=== PATIENT | male | born 1970 | race African-American/Black ===

== ENCOUNTER 2019-04-19 21:22 | Observation (INO) | payer OTHER ==
--- NOTE | 2019-04-19 22:26 | ED ---
Chest Pain HPI - General Chief Complaint: Chest Pain Stated Complaint: Chest pain Time Seen by Provider: 04/19/19 21:42 Source: patient, family Mode of arrival: wheelchair Limitations: no limitations - History of Present Illness Initial Comments: This patient is a 48-year-old man who presents to be evaluated for some left- sided chest pain that had come on this evening after he had a little bit of an argument with his significant other. He indicates the left chest. The pain was aching and mild. It has resolved. The pain was not accompanied by anginal type symptoms. The patient's recent history is notable for new diagnosis of nonischemic cardiomyopathy, almost a month ago. The patient works as a truck loader and had developed shortness of breath. He was seen at a hospital in [place] and admitted for congestive heart failure. He does have some discharge papers from the other facility that indicate he had a heart catheterization without significant coronary artery disease. He was found to have ejection fraction of 10-15% on that study. He also had an echocardiogram that showed ejection fraction approximately 15%, and some LVH. MD Complaint: chest pain -: hour(s) Onset: other (After an argument) Pain Location: left chest Pain Radiation: none Severity: mild Quality: aching Consistency: now resolved Improves With: nothing Worsens With: nothing Treatments Prior to Arrival: none - Related Data Previous Rx's Medication Instructions Recorded Aspirin 81 mg PO DAILY #30 chew 04/21/19 Carvedilol [Coreg] 6.25 mg PO DAILY #60 tab 04/21/19 Furosemide [Lasix] 20 mg PO DAILY #30 tab 04/21/19 Sacubitril/Valsartan [Entresto 24 1 tab PO BID #60 tab 04/21/19 mg-26 mg Tablet] Spironolactone 12.5 mg PO HS #20 tab 04/21/19 Allergies Allergy/AdvReac Type Severity Reaction Status Date / Time No Known Allergies Allergy Verified 04/19/19 22:42 Review of Systems ROS Statement: Those systems with pertinent positive or pertinent negative responses have been documented in the HPI. ROS Other: All systems not noted in ROS Statement are negative. Constitutional: Denies: fever, chills Respiratory: Denies: cough, dyspnea, wheezes Cardiovascular: Reports: as per HPI, chest pain. Denies: palpitations, orthopnea, edema, syncope Gastrointestinal: Denies: abdominal pain, nausea, vomiting, melena, hematochezia Genitourinary: Denies: dysuria, hematuria Musculoskeletal: Denies: back pain Skin: Denies: rash Neurological: Denies: headache, weakness, numbness EKG Findings - EKG Comments: EKG Findings:: There is no old ECG for comparison. - EKG Results: EKG: interpreted by LJD, sinus rhythm (Rate 93 bpm), normal axis - Blocks, [place], Hypertrophy, ST Abn: AV and intraventricular conduction: left bundle branch block (fixed/intermittent, complete/incomplete) Past Medical History Past Medical History: Heart Failure, Rheumatoid Arthritis (RA) Past Surgical History: No Surgical Hx Reported Past Psychological History: No Psychological Hx Reported Smoking Status: Current every day smoker Past Alcohol Use History: None Reported Past Drug Use History: None Reported - Past Family History Mother Family Medical History: CVA/TIA Father History Unknown: Yes General Exam Limitations: no limitations General appearance: alert, in no apparent distress Head exam: Present: atraumatic, normocephalic Eye exam: Present: normal appearance. Absent: scleral icterus, conjunctival injection ENT exam: Present: normal oropharynx Respiratory exam: Present: normal lung sounds bilaterally. Absent: respiratory distress, wheezes, rales, rhonchi, stridor Cardiovascular Exam: Present: regular rate, normal rhythm, gallop. Absent: systolic murmur, diastolic murmur, rubs GI/Abdominal exam: Present: soft. Absent: distended, tenderness, guarding, rebound, rigid, mass Extremities exam: Present: normal inspection, normal capillary refill. Absent: pedal edema, calf tenderness Back exam: Present: normal inspection. Absent: CVA tenderness (R), CVA tenderness (L) Neurological exam: Present: alert Skin exam: Present: warm, dry, intact, normal color. Absent: rash Course Vital Signs 04/19/19 04/19/19 04/19/19 21:30 21:49 22:00 Temperature 97.6 F Pulse Rate 94 96 94 Pulse Rate [ Pulse Oximetery ] Respiratory 18 18 16 Rate Blood Pressure 134/84 119/80 Blood Pressure [Right Arm] O2 Sat by Pulse 100 98 96 Oximetry 04/19/19 04/20/19 04/20/19 23:24 00:00 01:38 Temperature Pulse Rate 100 85 79 Pulse Rate [ Pulse Oximetery ] Respiratory 18 18 18 Rate Blood Pressure 102/80 102/78 101/70 Blood Pressure [Right Arm] O2 Sat by Pulse 98 99 97 Oximetry 04/20/19 04/20/19 04/20/19 02:00 04:00 06:00 Temperature Pulse Rate 86 82 72 Pulse Rate [ Pulse Oximetery ] Respiratory 18 18 18 Rate Blood Pressure 101/70 100/68 102/78 Blood Pressure [Right Arm] O2 Sat by Pulse 99 95 98 Oximetry 04/20/19 04/20/19 04/20/19 08:00 12:00 16:00 Temperature 97.1 F L 97.7 F 98.0 F Pulse Rate Pulse Rate [ 82 80 80 Pulse Oximetery ] Respiratory 16 16 16 Rate Blood Pressure Blood Pressure 118/82 97/66 90/66 [Right Arm] O2 Sat by Pulse 96 96 99 Oximetry 04/20/19 20:36 Temperature 98.0 F Pulse Rate Pulse Rate [ 74 Pulse Oximetery ] Respiratory 18 Rate Blood Pressure Blood Pressure 109/73 [Right Arm] O2 Sat by Pulse 100 Oximetry - Reevaluation(s) Reevaluation #1: 04/19/19 23:[address] Romeo and his treatment recommendations are incorporated. Disposition Clinical Impression: Elevated troponin I level, Chest pain Disposition: ADMITTED IP TO THIS [facility] Condition: Fair
[2019-04-19 22:33] LABS: Basophils % (A) 1 %; Eosinophils # (A) 0.3 k/uL (0-0.7); Eosinophils % (A) 4 %; HCT 44.3 % (39.0-53.0); HGB 15.2 gm/dL (13.0-17.5); Lymphocytes # (A) 2.4 k/uL (1.0-4.8); Lymphocytes % (A) 31 %; MCH 30.4 pg (25.0-35.0); MCHC 34.2 g/dL (31.0-37.0); MCV 88.7 fL (80.0-100.0); Mean Platelet Volume 8.1; Monocytes # (A) 0.3 k/uL (0-1.0); Monocytes % (A) 4 %; Neutrophils # (A) 4.6 k/uL (1.3-7.7); Neutrophils % (A) 59 %; Platelet Count 166 k/uL (150-450); RDW 14.3 % (11.5-15.5); WBC 7.8 k/uL (3.8-10.6)
[2019-04-19 22:41] LABS: Albumin 4.1 g/dL (3.5-5.0); Calcium 8.6 mg/dL (8.4-10.2); Total Bilirubin 0.6 mg/dL (0.2-1.3); Total Protein 7.5 g/dL (6.3-8.2)
[2019-04-19 22:46] LABS: D-Dimer 0.47 mg/L FEU (<0.60); INR 0.9 (<1.2); Partial Thromboplastin Time 23.3 sec (22.0-30.0); Prothrombin Time 10.1 sec (9.0-12.0)
--- NOTE | 2019-04-19 22:49 | XR ---
EXAMINATION TYPE: XR chest 2V DATE OF EXAM: 04/19/2019 COMPARISON: NONE HISTORY: Chest pain TECHNIQUE: Single view FINDINGS: Heart is moderately enlarged. There is no heart failure. Lungs are clear. Diaphragm is norm al. There are chest leads. IMPRESSION: Moderate cardiomegaly. No active cardiopulmonary disease. No heart failure seen.
[2019-04-19] MEDS ORDERED: NITROGLYCERIN SL TABS 0.4 MG TAB SUBLINGUAL PRN (23:38)
[2019-04-20 04:41] LABS: Cholesterol 145 mg/dL (<200); HDL Cholesterol 26 mg/dL (40-60); LDL Cholesterol,Calculated 88 mg/dL (0-99); Triglycerides 153 mg/dL (<150)
[2019-04-20] MEDS ORDERED: FUROSEMIDE 20 MG TAB PO SCH ×2 (09:00→16:00)
[2019-04-20] MEDS ORDERED: CARVEDILOL 6.25 MG TAB PO SCH (09:00)
[2019-04-20] MEDS ORDERED: ASPIRIN 325 MG TAB PO SCH (09:00)
[2019-04-20] MEDS: SACUBITRIL/VALSARTAN 24 MG-26 MG TABLET PO SCH ×2 (09:07→21:40)
--- NOTE | 2019-04-20 10:47 | P.HPIM ---
History of Present Illness This is a pleasant 48 years old male with past medical history of rheumatoid arthritis, nonischemic cardiomyopathy with ejection fraction of 10-15% and GERD. He presents with 1 day of chest pain. His chest pain was across the front chest, nonradiating, nonspecific, was about 6/10 on come in to the hospital and currently is minimal, associated with numbness in the legs with times in the back and dyspnea which are also resolved now. 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 Patient is a switching [employer] and insurance as well, for this reason he does not have medical insurance currently and does not follow up with PCP. Patient ran out of his medication 1-2 days before is getting chest pain except for entresto. He is hemodynamically stable. Labs reviewed including CBC, INR, BMP and liver en zymes are not elevated. Troponin are elevated 2 with 0.088. In the emergency room patient was started on aspirin and consult airplane pilot commercial Review of Systems CONSTITUTIONAL: No fever, no malaise, no fatigue. HEENT: No recent visual problems or hearing problems. Denied any sore throat. CARDIOVASCULAR: No orthopnea, PND, no palpitations, no syncope. PULMONARY: No shortness of breath, no cough, no hemoptysis. GASTROINTESTINAL: No diarrhea, no nausea, no vomiting, no abdominal pain. Normoactive bowel sounds. NEUROLOGICAL: No headaches, no weakness, no numbness. HEMATOLOGICAL: Denies any bleeding or petechiae. GENITOURINARY: Denies any burning micturition, frequency, or urgency. MUSCULOSKELETAL/RHEUMATOLOGICAL: Denies any joint pain, swelling, or any muscle pain. ENDOCRINE: Denies any polyuria or polydipsia. Past Medical History Past Medical History: Heart Failure, GERD/Reflux, Rheumatoid Arthritis (RA) Additional Past Medical History / Comment(s): Nonischemic cardiomyopathy/EF 10- 15%, bronchitis, RA mostly in fingers with weather changes. History of Any Multi-Drug Resistant Organisms: None Reported Past Surgical History: Heart Catheterization Additional Past Surgical History / Comment(s): 03/2019 cardiac cath in [place] Past Anesthesia/Blood Transfusion Reactions: No Reported Reaction Additional Past Anesthesia/Blood Transfusion Reaction / Comment(s): Pt has never had general anesthesia Smoking Status: Former smoker - Past Family History Mother Family Medical History: CVA/TIA Father History Unknown: Yes Medications and Allergies Home Medications Medication Instructions Recorded Confirmed Type Carvedilol [Coreg] 6.25 mg PO DAILY 04/19/19 04/19/19 History Furosemide [Lasix] 20 mg PO DAILY 04/19/19 04/19/19 History Sacubitril/Valsartan [Entresto 24 1 tab PO BID 04/19/19 04/19/19 History mg-26 mg Tablet] Spironolactone 12.5 mg PO HS 04/19/19 04/19/19 History Allergies Allergy/AdvReac Type Severity Reaction Status Date / Time No Known Allergies Allergy Verified 04/19/19 22:42 Physical Exam Vitals: Vital Signs Temp Pulse Resp BP Pulse Ox 04/20/19 06:00 72 18 102/78 98 04/20/19 04:00 82 18 100/68 95 04/20/19 02:00 86 18 101/70 99 04/20/19 01:38 79 18 101/70 97 04/20/19 00:00 85 18 102/78 99 04/19/19 23:24 100 18 102/80 98 04/19/19 22:00 94 16 119/80 96 04/19/19 21:49 96 18 98 04/19/19 21:30 97.6 F 94 18 134/84 100 Intake and Output 04/19/19 04/20/19 04/20/19 22:59 06:59 14:59 Other: Weight 117.934 kg 117.934 kg GENERAL: The patient is alert and oriented x3, not in any acute distress. Well developed, well nourished. HEENT: Pupils are round and equally reacting to light. EOMI. No scleral icterus. No conjunctival pallor. Normocephalic, atraumatic. No pharyngeal erythema. No thyromegaly. CARDIOVASCULAR: S1 and S2 present. No murmurs, rubs, or gallops. PULMONARY: Chest is clear to auscultation, no wheezing or crackles. ABDOMEN: Soft, nontender, nondistended, normoactive bowel sounds. No palpable organomegaly. MUSCULOSKELETAL: No joint swelling or deformity. EXTREMITIES: No cyanosis, clubbing, or pedal edema. NEUROLOGICAL: Gross neurological examination did not reveal any focal deficits. SKIN: No rashes. No petechiae Results CBC & Chem 7: 04/19/19 21:55 01/13/20 21:55 Labs: Abnormal Lab Results - Last 24 Hours (Table) 04/19/19 04/19/19 04/20/19 Range/Units 21:55 21:55 04:08 Chloride 111 H (98-107) mmol/L Carbon Dioxide 20 L (22-30) mmol/L Glucose 163 H (74-99) mg/dL Troponin I 0.088 H* (0.000-0.034) ng/mL Triglycerides 153 H (<150) mg/dL HDL Cholesterol 26 L (40-60) mg/dL 04/20/19 Range/Units 04:09 Chloride (98-107) mmol/L Carbon Dioxide (22-30) mmol/L Glucose (74-99) mg/dL Troponin I 0.081 H* (0.000-0.034) ng/mL Triglycerides (<150) mg/dL HDL Cholesterol (40-60) mg/dL Thrombosis Risk Factor Assmnt - Choose All That Apply Any of the Below Risk Factors Present?: Yes Each Factor Represents 1 point: Age 41-60 years, Heart failure (<1month), Obesity (BMI >25) Other Risk Factors: No Other congenital or acquired thrombophilia - If yes, enter type in comment: No Thrombosis Risk Factor Assessment Total Risk Factor Score: 3 Thrombosis Risk Factor Assessment Level: Moderate Risk Assessment and Plan Assessment: Elevated troponin, suspicious for non-STEMI nonischemic cardiomyopathy with ejection fraction of 10-15% nicotine dependence, quit on 03/2019 Noncompliance to medications due to insurance reasons Gastroesophageal reflux disease History of rheumatoid arthritis Plan: This is a pleasant 48 years old male who presents with possible non-STEMI. Continue with aspirin. Cardiology consult. hog worker consult. Patient is consult regarding his smoking and he does not want nicotine he wants to quit by himself Labs and medication were reviewed.. Continue same treatment. Continue with symptomatic treatment. Resume home medication. Monitor lytes and vitals. DVT and GI prophylaxis. Further recommendations of the clinical course of the patient DVT prophylaxis: Subcutaneous heparin GI Prophylaxis: Pepcid Prognosis is guarded
--- NOTE | 2019-04-20 13:37 | P.CRDCN ---
History of Present Illness Consult date: 04/20/19 Requesting physician: Omer Rodriguez Consult reason: congestive heart failure Chief complaint: chest discomfort and shortness of breath History of present illness: this is a 48-year-old gentleman who was seen at a hospital in [place] about a month ago, admitted there with congestive cardiac failure as well as a nonischemic cardiomyopathy, felt to be viral. Prior to that patient had no significant history. He had an echocardiogram with Doppler study performed there which revealed an ejection fraction of 10-15%, mild to moderate mitral regurgitation. 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 Reason he is now hearing [employer] because his girlfriend lives here. He is actually from [facility] himself. He presents to the hospital on this occasion after having an argument at home with his significant other, developed some midsternal chest pressure and became quite short of breath. The patient also states that he has not been taking his medications for the past one week as he ran out of them. Patient's discharge medications on March 09 from the hospital when he was inhe was sat in [place], Coreg 6.25 mg twice a day, Lasix 20 mg daily, Entresto 24/26mg one tablet by mouth twice a day and Aldactone 25 one half tablet daily.chest x-ray on arrival here showed moderate cardiomegaly with no active cardiopulmonary disease.his EKG showed a normal sinus rhythm with a left bundle-branch block pattern and nonspecific ST-T wave changes.subsequent EKG shows normal sinus rhythm with a left bundle-branch block pattern. Blood pressure 118/80 with a heart rate in the 80s, 96% on room air. White blood cell count 7.8, hemoglobin 15.2, platelet count 166. D-dimer 0.4. Sodium 141, potassium 4.0, BUN 18, creatinine 1.2.magnesium 2.0. Troponin 0.088, 0.081, 0.083.BNP 3210. Cholesterol 145, LDL 88, HDL 26, triglycerides 153. Past Medical History Past Medical History: Heart Failure, GERD/Reflux, Rheumatoid Arthritis (RA) Additional Past Medical History / Comment(s): Nonischemic cardiomyopathy/EF 10- 15%, bronchitis, RA mostly in fingers with weather changes. History of Any Multi-Drug Resistant Organisms: None Reported Past Surgical History: Heart Catheterization Additional Past Surgical History / Comment(s): 03/2019 cardiac cath in [place] Past Anesthesia/Blood Transfusion Reactions: No Reported Reaction Additional Past Anesthesia/Blood Transfusion Reaction / Comment(s): Pt has never had general anesthesia Smoking Status: Former smoker - Past Family History Mother Family Medical History: CVA/TIA Father History Unknown: Yes Medications and Allergies Home Medications Medication Instructions Recorded Confirmed Type Carvedilol [Coreg] 6.25 mg PO DAILY 04/19/19 04/19/19 History Furosemide [Lasix] 20 mg PO DAILY 04/19/19 04/19/19 History Sacubitril/Valsartan [Entresto 24 1 tab PO BID 04/19/19 04/19/19 History mg-26 mg Tablet] Spironolactone 12.5 mg PO HS 04/19/19 04/19/19 History Allergies Allergy/AdvReac Type Severity Reaction Status Date / Time No Known Allergies Allergy Verified 04/19/19 22:42 Physical Exam Vitals: Vital Signs Temp Pulse Pulse Resp BP BP Pulse Ox 04/20/19 08:00 97.1 F L 82 16 118/82 96 04/20/19 06:00 72 18 102/78 98 04/20/19 04:00 82 18 100/68 95 04/20/19 02:00 86 18 101/70 99 04/20/19 01:38 79 18 101/70 97 04/20/19 00:00 85 18 102/78 99 04/19/19 23:24 100 18 102/80 98 04/19/19 22:00 94 16 119/80 96 04/19/19 21:49 96 18 98 04/19/19 21:30 97.6 F 94 18 134/84 100 Intake and Output 04/19/19 04/20/19 04/20/19 22:59 06:59 14:59 Other: Voiding Method Urinal Weight 117.934 kg 117.934 kg PHYSICAL EXAMINATION: GENERAL:48-year-old gentleman in no acute distress at the time of my exam HEENT: Head is atraumatic, normocephalic. Pupils equal, round. Sclera anicteric. Conjunctiva are clear. Mucous membranes of the mouth are moist. Neck is supple. There is elevated jugular venous pressure. No carotid bruit is heard. HEART EXAMINATION: heart S1 S2 1 systolic murmur is heard CHEST EXAMINATION:[ Lungs are clear to auscultation and precussion. No chest wall tenderness is noted on palpation or with deep breathing.] ABDOMEN: [ Soft, nontender. Bowel sounds are heard. No organomegaly noted]. EXTREMITIES:[ 2+ peripheral pulses with no evidence of peripheral edema and no calf tenderness noted]. NEUROLOGIC [patient is awake, alert and oriented3 . Results 04/19/19 21:55 04/19/19 21:55 Cardiac Enzymes 04/19/19 04/19/19 04/20/19 Range/Units 21:55 21:55 04:09 AST 37 (17-59) U/L Troponin I 0.088 H* 0.081 H* (0.000-0.034) ng/mL 04/20/19 Range/Units 10:57 AST (17-59) U/L Troponin I 0.083 H* (0.000-0.034) ng/mL Coagulation 04/19/19 Range/Units 21:55 PT 10.1 (9.0-12.0) sec APTT 23.3 (22.0-30.0) sec Lipids 04/20/19 Range/Units 04:08 Triglycerides 153 H (<150) mg/dL Cholesterol 145 (<200) mg/dL HDL Cholesterol 26 L (40-60) mg/dL CBC 04/19/19 Range/Units 21:55 WBC 7.8 (3.8-10.6) k/uL RBC 5.00 (4.30-5.90) m/uL Hgb 15.2 (13.0-17.5) gm/dL Hct 44.3 (39.0-53.0) % Plt Count 166 (150-450) k/uL Comprehensive Metabolic Panel 04/19/19 Range/Units 21:55 Sodium 141 (137-145) mmol/L Potassium 4.0 (3.5-5.1) mmol/L Chloride 111 H (98-107) mmol/L Carbon Dioxide 20 L (22-30) mmol/L BUN 18 (9-20) mg/dL Creatinine 1.25 (0.66-1.25) mg/dL Glucose 163 H (74-99) mg/dL Calcium 8.6 (8.4-10.2) mg/dL AST 37 (17-59) U/L ALT 28 (4-49) U/L Alkaline Phosphatase 101 (38-126) U/L Total Protein 7.5 (6.3-8.2) g/dL Albumin 4.1 (3.5-5.0) g/dL Current Medications Generic Name Dose Route Start Last Admin Trade Name Puma PRN Reason Stop Dose Admin Aspirin 81 mg 04/21/19 09:00 Aspirin PO DAILY JEREMIAH Carvedilol 6.25 mg 04/20/19 17:30 Coreg PO AC-BID JEREMIAH Furosemide 20 mg 04/20/19 15:00 Lasix PO 0700,1500 JEREMIAH Nitroglycerin 0.4 mg 04/19/19 23:38 Nitrostat SUBLINGUAL Q5M PRN Chest Pain Sacubitril/Valsartan 1 each 04/20/19 09:00 04/20/19 09:07 Entresto 24 Mg-26 Mg Tablet PO 1 each BID JEREMIAH Administration Spironolactone 12.5 mg 04/20/19 21:00 Aldactone PO HS JEREMIAH Intake and Output 04/19/19 04/20/19 04/20/19 22:59 06:59 14:59 Other: Voiding Method Urinal Weight 117.934 kg 117.934 kg Patient Weight 04/21/19 06:59 Weight 117.934 kg 04/19/19 21:55 04/19/19 21:55 EKG Interpretations (text) EKG shows a normal sinus rhythm with a left bundle-branch block pattern and nonspecific ST-T wave changes Assessment and Plan Plan: assessment and plan #1 systolic congestive heart failure acute on chronic #2 Severe nonischemic cardiomyopathy with documented ejection fraction around 10-15%. This was diagnosed about one month ago in [place], patient underwent a cardiac catheterization at that time which did not reveal any significantly obstructive coronary artery disease, it was felt to be a possible viral card iomyopathy, patient had ran out of his medications recently. #2 chest pain, recent cardiac catheterization showed normal coronary arteries, troponin 0.8 0.8 0.8, with no significant rise and fall pattern, not suggestive of acute coronary syndrome. #3 hypertension Plan According to the patient, he states that he rarely drinks any alcohol, does have one beer once or twice a year, he has been instructed during the importance of completing ETOH cessationin view of his cardiomyopathy. Patient will be resumed on his home medications which include aspirin 81 mg daily, Coreg 6.25 mg twice a day, Lasix 20 mg twice a day, Aldactone 12-1/2 mg daily at bedtime, and Entresto 24/26mg PO BID. Repeat echocardiogram with Doppler study.Continue to monitor the patient for 24 hours. DNP note has been reviewed, I agree with a documented findings and plan of care. Patient was seen and examined.
[2019-04-20] MEDS: FUROSEMIDE 20 MG TAB PO SCH (16:35)
[2019-04-20] MEDS: CARVEDILOL 6.25 MG TAB PO SCH (16:35)
[2019-04-20 16:49] LABS: Hemoglobin A1C 5.7 % (4.0-6.0)
[2019-04-20 20:36] VITALS: RESP 18
[2019-04-20] MEDS ORDERED: SPIRONOLACTONE 25 MG TAB PO SCH (21:00)
[2019-04-21 05:44] LABS: Basophils % (A) 1 %; Eosinophils # (A) 0.4 k/uL (0-0.7); Eosinophils % (A) 5 %; HCT 40.3 % (39.0-53.0); Lymphocytes # (A) 2.7 k/uL (1.0-4.8); Lymphocytes % (A) 35 %; MCH 31.1 pg (25.0-35.0); MCHC 34.8 g/dL (31.0-37.0); MCV 89.3 fL (80.0-100.0); Mean Platelet Volume 7.8; Monocytes # (A) 0.5 k/uL (0-1.0); Monocytes % (A) 6 %; Neutrophils # (A) 3.9 k/uL (1.3-7.7); Neutrophils % (A) 52 %; Platelet Count 160 k/uL (150-450); RBC 4.51 m/uL (4.30-5.90); RDW 14.4 % (11.5-15.5); WBC 7.6 k/uL (3.8-10.6)
[2019-04-21 05:56] LABS: Calcium 8.7 mg/dL (8.4-10.2); Potassium 4.2 mmol/L (3.5-5.1)
[2019-04-21] MEDS: FUROSEMIDE 20 MG TAB PO SCH (06:49)
[2019-04-21] MEDS: CARVEDILOL 6.25 MG TAB PO SCH (06:49)
[2019-04-21 08:23] VITALS: BP 103/55; PULSE 71; TEMP 97.6
[2019-04-21] MEDS: SACUBITRIL/VALSARTAN 24 MG-26 MG TABLET PO SCH (08:26)
[2019-04-21] MEDS ORDERED: ASPIRIN 81 MG PO SCH (09:00)
--- NOTE | 2019-04-21 11:00 | ECHOF ---
Referral Reason:assess lvf MEASUREMENTS -------- HEIGHT: 180.3 cm WEIGHT: 117.9 kg BP: RVIDd: 3.6 cm (< 3.3) IVSd: 1.1 cm (0.6 - 1.1) LVIDd: 9.0 cm (3.9 - 5.3) LVPWd: 1.1 cm (0.6 - 1.1) IVSs: 1.4 cm LVIDs: 8.1 cm LVPWs: 1.3 cm LAESV Index (A-L): 52.15 ml/m Ao Diam: 2.8 cm (2.0 - 3.7) AV Cusp: 2.0 cm (1.5 - 2.6) LA Diam: 4.9 cm (2.7 - 3.8) MV EXCURSION: 14.414 mm (> 18.000) MV EF SLOPE: 60 mm/s (70 - 150) EPSS: 3.3 cm MV E Leonel: 1.01 m/s MV DecT: 204 ms MV A Leonel: 0.50 m/s MV E/A Ratio: 2.03 AR PHT: 564 ms RAP: 5.00 mmHg RVSP: 35.90 mmHg FINDINGS -------- Sinus rhythm. This was a technically good study. The left ventricle is severely dilated. Left ventricular wall thickness is normal. There is sever e global hypokinesis of LV . Overall left ventricular systolic function is severely impaired with, an EF < 20%. Increased LAP. Grade 3 Diastolic Dysfunction. The right ventricle is mild to moderately enlarged. The left atrium is moderately dilated. LA is severely dilated >40 ml/m2 The right atrial size is normal. 5.0mg of Lumason was utilized for enhancement of images The aortic valve is trileaflet and appears structurally normal. There is mild aortic regurgitation. The mitral valve is normal. Mild mitral regurgitation is present. The tricuspid valve appears structurally normal. Mild tricuspid regurgitation present. There is m ild pulmonary hypertension. The right ventricular systolic pressure, as measured by Doppler, is 35. 90mmHg. Trace/mild (physiologic) pulmonic regurgitation. The aortic root size is normal. IVC Not well visulized. There is no pericardial effusion. CONCLUSIONS -------- 1. Sinus rhythm. 2. This was a technically good study. 3. The left ventricle is severely dilated. 4. Left ventricular wall thickness is normal. 5. There is severe global hypokinesis of LV . 6. Overall left ventricular systolic function is severely impaired with, an EF < 20%. 7. Increased LAP. Grade 3 Diastolic Dysfunction. 8. The right ventricle is mild to moderately enlarged. 9. The left atrium is moderately dilated. 10. LA is severely dilated >40 ml/m2 11. The right atrial size is normal. 12. 5.0mg of Lumason was utilized for enhancement of images 13. The aortic valve is trileaflet and appears structurally normal. 14. There is mild aortic regurgitation. 15. The mitral valve is normal. 16. Mild mitral regurgitation is present. 17. The tricuspid valve appears structurally normal. 18. Mild tricuspid regurgitation present. 19. There is mild pulmonary hypertension. 20. The right ventricular systolic pressure, as measured by Doppler, is 35.90mmHg. 21. Trace/mild (physiologic) pulmonic regurgitation. 22. The aortic root size is normal. 23. IVC Not well visulized. 24. There is no pericardial effusion. MANAGER SCIENCE: Ebony Hill RDCS
--- NOTE | 2019-04-21 12:46 | PN ---
PROGRESS NOTE Mr. Swanson has what seems to be a nonischemic cardiomyopathy that was diagnosed in [place] recently. He has a LifeVest at home that he did not bring in. He is on appropriate medications. He is not in heart failure. Vital signs stable. JVD 1 cm. No carotid bruit. S1, S2 heard normally. No significant murmurs. Lungs are clear. Abdomen is soft, nontender. Lower extremities reveal diminished pulses. No edema. Central nervous system is normal. I am recommending that this gentleman can be discharged, where a LifeVest. I will see him in the office in 2 weeks. Advised to refrain from alcohol and be compliant with medications. MMODL / IJN: [id number] /
--- NOTE | 2019-04-21 22:00 | P.DS ---
Providers Date of admission: 04/19/19 23:40 Attending physician: Omer Rodriguez Consults: 04/19/19 23:44 Consult Physician Stat Consulting Provider: Korey Romeo Consult Reason/Comments: Chest pain. Minimally elevated troponin. Do you want consulting provider notified?: Already Contacted Primary care physician: Stated None Hospital Course: Diagnoses: Acute on chronic systolic heart failure, secondary to noncompliance to medication nonischemic cardiomyopathy with ejection fraction of 10-15% Elevated troponin, nonspecific, evaluated by gameplay engineer nicotine dependence, quit on 03/2019 Noncompliance to medications due to insurance reasons, as patient is switching jobs currently Gastroesophageal reflux disease History of rheumatoid arthritis Hospital course: This is a pleasant 48 years old male with past medical history of rheumatoid arthritis, nonischemic cardiomyopathy with ejection fraction of 10-15% and GERD. He presents with 1 day of chest pain. Associated with some dyspnea and numbne ss in his legs. Patient was not taking his medication because he's lost his insurance while switching his job as he works as a truck and transport mechanic, also patient has sedentary lifestyle, is a smoker and drinks alcohol which exacerbated his heart failure on the top of not taking medication. Patient was admitted to the hospital with diagnosis of acute heart failure. Patient was restarted his home medication including Coreg, oral Lasix, Aldactone, baby aspirin and entresto. Also his been evaluated by gameplay engineer, his elevated troponins were nonspecific. Also patient has recent cardiac cath which was unremarkable, please refer to cardiology note for more details. With restarting patient home medication, patient felt better and his symptoms are completely resolved, on the day of discharge he has 0 chest pain, no chest pain, no dyspnea, his numbness in his legs are gone and his strength is back. Patient states his back to his normal state and he wants to go home today. Patient was counseled about the importance of adherence to medication. Risks and benefits are explained. machine farmworker evaluated the patient to help with his medication. Patient was cleared for discharge by gameplay engineer team Problems and management plan were discussed with the patient and he verbalized understanding and acceptance Patient was found stable and can be discharged home however he needs follow-up as an outpatient. Patient was instructed to follow up with PCP within one week and patient agrees, pt agrees with cardiology appointment discussed with s/w and she helped pt give his medication supply Gen: patient is a AAOx3, no distress CVS: S1-S2, RRR, no murmur Lungs: B/L CTA, no wheezing Abdomen: soft, no distention, no tenderness, positive bowel sounds Extremity: no leg edema or induration Time spent more than 35 minutes. Patient was instructed to [facility] to he gets his insurance and he agrees. Also he is instructed to follow up with gameplay engineer in 1-2 weeks and he agrees Patient Condition at Discharge: Fair Plan - Discharge Summary Discharge Rx Participant: No New Discharge Prescriptions: New Aspirin 81 mg PO DAILY #30 chew Continue Carvedilol [Coreg] 6.25 mg PO DAILY #60 tab Sacubitril/Valsartan [Entresto 24 mg-26 mg Tablet] 1 tab PO BID #60 tab Furosemide [Lasix] 20 mg PO DAILY #30 tab Spironolactone 12.5 mg PO HS #20 tab Discharge Medication List Aspirin 81 mg PO DAILY #30 chew 04/21/19 [Rx] Carvedilol [Coreg] 6.25 mg PO DAILY #60 tab 04/21/19 [Rx] Furosemide [Lasix] 20 mg PO DAILY #30 tab 04/21/19 [Rx] Sacubitril/Valsartan [Entresto 24 mg-26 mg Tablet] 1 tab PO BID #60 tab 04/21/19 [Rx] Spironolactone 12.5 mg PO HS #20 tab 04/21/19 [Rx] Follow up Appointment(s)/Referral(s): Bernard Senior MD [STAFF PHYSICIAN] - 05/05/19 2:00 pm None,Stated [Primary Care Provider] - 1-2 days [facility] [NON-STAFF] - 1 Week Patient Instructions/Handouts: Angina (DC), Dyspnea (DC) Activity/Diet/Wound Care/Special Instructions: Cardiac diet Activity is limited till you see your doctor Discharge Disposition: HOME SELF-CARE
== END 2019-04-21 11:10 | disposition home or self-care (01) ==
LOC: EC 21:22 → 3SCARD 23:40
PROVIDERS: ADMIT Hospitalist; ATTEND Hospitalist
DX: I50.23 Acute on chronic systolic (congestive) heart failure (principal); I11.0 Hypertensive heart disease with heart failure; Z91.14 Patient's other noncompliance with medication regimen; F17.200 Nicotine dependence, unspecified, uncomplicated; I42.8 Other cardiomyopathies; K21.9 Gastro-esophageal reflux disease without esophagitis; M06.9 Rheumatoid arthritis, unspecified; I44.7 Left bundle-branch block, unspecified; I27.20 Pulmonary hypertension, unspecified; Z79.899 Other long term (current) drug therapy
CPT/HCPCS: 99285; 36415; 93005 ×2; 85379; 83880; 80061; 80053; 80048; 83735; 84484 ×2; 85025 ×2; 85610; 85730; 83036; 71046; G0378 ×2; C8929; Q9950; 93306

== ENCOUNTER → 2019-06-18 | Outpatient (CLI) | payer OTHER ==
[2019-06-18 13:17] LABS: HGB 16.3 gm/dL (13.0-17.5); MCH 31.2 pg (25.0-35.0); MCHC 34.7 g/dL (31.0-37.0); MCV 89.7 fL (80.0-100.0); Mean Platelet Volume 7.9; Platelet Count 171 k/uL (150-450); RBC 5.24 m/uL (4.30-5.90); RDW 15.4 % (11.5-15.5); WBC 9.2 k/uL (3.8-10.6)
[2019-06-18 13:27] LABS: Potassium 5.8 mmol/L (3.5-5.1)
== END | disposition home or self-care (01) ==
LOC: LABPAT 11:49
PROVIDERS: ATTEND Internal Medicine Cardiovascular Disease
DX: Z01.812 Encounter for preprocedural laboratory examination (principal); I42.9 Cardiomyopathy, unspecified
CPT/HCPCS: 36415; 80051; 82565; 82947; 84520; 85027

== ENCOUNTER → 2019-06-23 | Outpatient (CLI) | payer OTHER ==
[2019-06-23 23:52] LABS: African American GFR (CKD) 81.8 (60.0-200.0); Anion Gap 6.1 mmol/L (4.00-12.00); BUN/Creat Ratio 10.83 Ratio (12.00-20.00); Carbon Dioxide 24.9 mmol/L (21.6-31.8); Non-African American GFR(CKD) 70.6 (60.0-200.0); Potassium 4.5 mmol/L (3.5-5.5)
== END | disposition home or self-care (01) ==
LOC: LABWHC1 16:05
PROVIDERS: ATTEND Nurse Practitioner
DX: E87.5 Hyperkalemia (principal)
CPT/HCPCS: 36415; 80048; 83735

== ENCOUNTER 2019-07-12 07:03 | Day surgery (SDC) | payer OTHER ==
[2019-07-08 13:22] VITALS: BMI 35.2
[~2019-07-12 07:03] MED LIST: DEXAMETHASONE SOD PHOSPHATE 10 MG/ML 1 ML VIAL IV ONE; HYDROmorphone 0.5 MG/0.5 ML SYRINGE IVP PRN; LACTATED RINGERS 1,000 ML IV SCH; LIDOCAINE 1% (10MG/ML) FOR IV START INTRADERMA PRN; MIDAZOLAM 2 MG/2 ML VIAL IV PRN; SODIUM CHLORIDE 0.9% 1,000 ML IV SCH; ceFAZolin 1,000 MG in SODIUM CHLORIDE 0.9% IRRIGATIO 250 ML IRRIGATION ONE
[2019-07-12] MEDS ORDERED: SODIUM CHLORIDE 0.9% 1,000 ML IV ONE (07:26)
[2019-07-12 07:38] VITALS: RESP 16; TEMP 97.7
[2019-07-12] MEDS ORDERED: MIDAZOLAM 2 MG/2 ML VIAL ONE (07:52)
[2019-07-12] MEDS ORDERED: PROPOFOL 10 MG/ML 20 ML VIAL IV ONE (07:52)
[2019-07-12] MEDS ORDERED: KETAMINE 10 MG/ML 20 ML VIAL ONE (07:52)
[2019-07-12] MEDS ORDERED: FUROSEMIDE 10 MG/ML 2 ML VIAL ONE (07:52)
[2019-07-12] MEDS ORDERED: GLYCOPYRROLATE 0.2 MG/ML 2 ML VIAL ONE (07:52)
[2019-07-12] MEDS ORDERED: ePHEDrine SULFATE/0.9% NACL/PF 50 MG/5 ML SYRINGE IV ONE (07:52)
[2019-07-12] MEDS ORDERED: PHENYLEPHRINE-0.9% NACL SYG 1 MG/10 ML SYRINGE ONE (07:52)
[2019-07-12] MEDS ORDERED: diphenhydrAMINE 50 MG/ML 1 ML VIAL ONE (07:52)
[2019-07-12] MEDS ORDERED: fentaNYL (PF) 50 MCG/ML 2 ML AMP ONE (07:52)
[2019-07-12] MEDS ORDERED: LIDOCAINE 1% INJ 10MG/ML (20 ML MDV) ONE (08:07)
[2019-07-12] MEDS ORDERED: IOPAMIDOL-370 50ML BTL INJ ONE (08:56)
[2019-07-12] MEDS ORDERED: LIDOCAINE 1% INJ 10MG/ML (20 ML MDV) SQ ONE ×2 (09:28→09:36)
[2019-07-12] MEDS ORDERED: ACETAMINOPHEN TAB 325 MG TAB PO PRN (12:28)
[2019-07-12] MEDS ORDERED: ACETAMINOPHEN IV (For NPO) 1,000 MG in EMPTY BAG 1 BAG IVPB ONE (12:28)
--- NOTE | 2019-07-12 12:34 | P.DS ---
Providers Attending physician: Korey Romeo Primary care physician: Stated None Hospital Course: Patient has severe nonischemic cardiomyopathy with severe heart failure symptoms significantly dilated left ventricle biatrial enlargement and congestive heart failure with a severely reduce LV systolic function of less than 20% and a wide QRS with a left bundle branch block morphology He underwent successful implantation of a biventricular ICD, Medtronic He'll be discharged home after IV antibiotics and a chest x-ray today and will follow-up in the device clinic in 5 days Plan - Discharge Summary Discharge Rx Participant: Yes New Discharge Prescriptions: Continue Sacubitril/Valsartan [Entresto 24 mg-26 mg Tablet] 1 tab PO BID #60 tab Carvedilol [Coreg] 6.25 mg PO BID Furosemide [Lasix] 20 mg PO BID Discharge Medication List Sacubitril/Valsartan [Entresto 24 mg-26 mg Tablet] 1 tab PO BID #60 tab 04/21/19 [Rx] Carvedilol [Coreg] 6.25 mg PO BID 07/08/19 [History] Furosemide [Lasix] 20 mg PO BID 07/08/19 [History] Follow up Appointment(s)/Referral(s): Korey Romeo MD [STAFF PHYSICIAN] - As Needed (Device clinic follow-up within [address] Senior as previously scheduled) Activity/Diet/Wound Care/Special Instructions: PATIENT EDUCATION MATERIAL Instructions following a heart rhythm device implant. 1. Keep dressing DRY for 5 DAYS. You may cover the area with Saran or Cling Wrap, prior to a shower. 2. The dressing will be removed in the Device Clinic at [facility]. Absorbable sutures were used to close the wound. 3. Avoid raising the left arm above the shoulder level. 4 week restriction 4. Avoid arm movements, like backscratching, rubbing the head, or pulling on a cord. 4 weeks restriction 5. Gentle range of motion movements of the shoulder, closest to the incision should be performed to avoid a frozen shoulder. (Pendulum exercises of the shoulder) 6. The opposite arm may be used freely. 7. Avoid driving for 7 days. 8. Avoid activities such as golfing, swimming, weed whacking, lifting more than 10 pounds weight, bowling, gymnastics and weight training/lifting. (6 weeks restriction) 9. Activities such as wood chopping with an axe, pull-ups in the gymnasium, power lifting, arc-welding, being close to home induction cooktops will always be a problem. 10. Arm sling is only a reminder not to raise the arm above the head. You do not need to keep the arm completely immobilized. Your free to move the arm and use it and for normal activities. In case of any problems, please call [facility], [place], @ [phone], Attention: Device Clinic Device clinic follow-up in 5 days Follow-up with primary tool and die repair in 2-3 months or as previously scheduled No changes in medications Chest x-ray at 3 PM IV antibiotics at 3 PM Discharge rest 6 PM if hemodynamically stable and chest x-ray is within normal limits Discharge Disposition: HOME SELF-CARE
--- NOTE | 2019-07-12 12:39 | P.PCN ---
Preoperative Diagnosis: Increase procedural services Patient underwent a biventricular ICD implantation This is a long procedure for the following reasons #1 the Yunior sinus was difficult to access on account of significantly dilated right atrium as well as ventricles #2 diminutive veins in the anterior vein was of reasonable size. Took some effort to get lead down with the tip at the 3 o'clock position in the BURKIN[place] view #3 this Medtronic passive lead, with tines, retracted back into the proximal portion of the anterior lateral vein once the sheath was removed. The thresholds were elevated and diaphragmatic stimulation was noted and therefore a new lead was implanted Initially we tried to maneuver this lead over major plasty while, then with the help of stylette but the lead would not past back into its original position Axillary vein access was retained and the coronary sinus was in the accessed. This once again was somewhat difficult but we finally were able to get in the coronary sinus Place the sheath and place the new lead, Medtronic screw-in lead model #4798 in the anterior vein with its tip finally and anterolateral position at 3:00 BURKINAN 20 Thresholds were excellent no diaphragmatic stimulation noted in this position Once the lead was screwed in an tested was no dislodgment or retraction
--- NOTE | 2019-07-12 13:05 | CE ---
CARDIAC ELECTROPHYSIOLOGY REPORT Result Successful implantation of a day to a biventricular ICD with LV lead in the anterior lateral vein Medtronic screw-in LV lead Details This is a 49-year-old male patient with severe LV dysfunction, chronic LV systolic dysfunction, despite medical treatment with severe class 3 congestive heart failure and underlying left bundle branch block, ejection fraction less than 30%, with a severely dilated left ventricle, who was brought in for a biventricular ICD implantation. Patient was brought to the EP lab in a fasting state. Written informed consent was obtained prior to the procedure. The left shoulder area was prepped and draped as per protocol; 1% lidocaine was used for local anesthesia. A 4 cm incision was made parallel to the deltopectoral groove, about 1.5 cm medial to the incision was carried down to the level of the pectoralis muscle. A subfascial pocket was made. Hemostasis was assured. The left axillary vein was accessed extra thoracically at 3 points and via appropriately-sized introducer sheaths, 3 leads were positioned. Please see further details of LV lead placement on a separate dictation. The right atrial lead was a model #4574, 53 cm in length and serial #[id number]. P waves were 3.8 mV, pacing impedance 917 ohms, pacing threshold 0.3 V at 0.5 milliseconds, 10 V test negative. The RV lead was model #6935M, 62 cm in length and serial number #[id number]. This is positioned just above the RV apex. R-waves were 30 mV, pacing impedance 634 ohms, pacing threshold 0.5 V at 0.5 milliseconds, 10 V test was negative. The LV lead was positioned in the anterolateral vein. The tip was in the 3 o'clock position in [place] 20 degrees. This was a model #4798 lead, model #[id number] and length 88 cm. Pacing thresholds were excellent in all poles. Pacing impedance 972 ohms and pacing threshold in the distal 2 poles was 0.5 V at 0.4 milliseconds, 10 V test negative. All leads were secured to the underlying pectoralis fascia using 2 nonabsorbable sutures. Pocket was irrigated with antibiotic solution. Leads were connected to the generator ([employer] MRI quad). Model #[id number] 1QQ, serial #[id number]. The leads and the generator were then placed in subfascial pocket. The wound was closed in 3 layers and dressed per protocol. Please see separate dictation for increased procedural services. The device was then programmed to sync AV with appropriate antitachycardia pacing, cardioversion defibrillation, 2 zones of therapy for tachy arrhythmias. CAL / GERRY: [id number] / MTDD
--- NOTE | 2019-07-12 15:30 | XR ---
EXAMINATION TYPE: XR chest 1V portable DATE OF EXAM: 07/12/2019 Comparison: 04/19/2019 Clinical History: 49-year-old male Device implant Findings: Left anterior chest wall AICD generator with right atrial, right ventricular, and coronary sinus lead s. Heart mildly enlarged. Left base underpenetrated and not well assessed. No definite consolidation or pleural effusion Impression: Cardiomegaly. 3-lead left-sided AICD generator. No definite acute process.
[2019-07-12 16:19] VITALS: BP 99/61; PULSE 85
--- NOTE | 2019-07-13 08:27 | P.DS ---
Providers Attending physician: Korey Romeo Primary care physician: Stated None Hospital Course: Prior to discharge the biventricular ICD was interrogated once again P waves 7.3 mV R waves greater than 20 mV Atrial pacing threshold 0.25 V at 0.4 ms RV pacing threshold 0.5 V at 0.4 ms LV pacing threshold 0.75 V at 0.4 ms, LV 2-LV 3 poles DDD mode, adaptive CRP 2 zones of therapy with appropriate antitachycardia pacing cardioversion and defibrillation Patient Condition at Discharge: Good Plan - Discharge Summary Discharge Rx Participant: Yes New Discharge Prescriptions: Continue RX: Sacubitril/Valsartan [Entresto 24 mg-26 mg Tablet] 1 tab PO BID #60 tab RX: Carvedilol [Coreg] 6.25 mg PO BID RX: Furosemide [Lasix] 20 mg PO BID Discharge Medication List RX: Sacubitril/Valsartan [Entresto 24 mg-26 mg Tablet] 1 tab PO BID #60 tab 04/21/19 [Rx] RX: Carvedilol [Coreg] 6.25 mg PO BID 07/08/19 [History] RX: Furosemide [Lasix] 20 mg PO BID 07/08/19 [History] Follow up Appointment(s)/Referral(s): Korey Romeo MD [STAFF PHYSICIAN] - 07/19/19 1:30 pm (Device clinic follow-up within 5 days at 1:30pm on 07/18 at Cardiology office Follow with Dr. ANDREEA Senior as previously scheduled on 08/16 at 12:00pm ) Patient Instructions/Handouts: Implantable Cardioverter Defibrillator (GEN), Procedural Sedation (ED) Activity/Diet/Wound Care/Special Instructions: PATIENT EDUCATION MATERIAL Instructions following a heart rhythm device implant. 1. Keep dressing DRY for 5 DAYS. You may cover the area with Saran or Cling Wrap, prior to a shower. 2. The dressing will be removed in the Device Clinic at [facility]. Absorbable sutures were used to close the wound. 3. Avoid raising the left arm above the shoulder level. 4 week restriction 4. Avoid arm movements, like backscratching, rubbing the head, or pulling on a cord. 4 weeks restriction 5. Gentle range of motion movements of the shoulder, closest to the incision should be performed to avoid a frozen shoulder. (Pendulum exercises of the shoulder) 6. The opposite arm may be used freely. 7. Avoid driving for 7 days. 8. Avoid activities such as golfing, swimming, weed whacking, lifting more than 10 pounds weight, bowling, gymnastics and weight training/lifting. (6 weeks restriction) 9. Activities such as wood chopping with an axe, pull-ups in the gymnasium, power lifting, arc-welding, being close to home induction cooktops will always be a problem. 10. Arm sling is only a reminder not to raise the arm above the head. You do not need to keep the arm completely immobilized. Your free to move the arm and use it and for normal activities. In case of any problems, please call [facility], [place], @ [phone], Attention: Device Clinic Device clinic follow-up in 5 days Follow-up with primary designer writer in 2-3 months or as previously scheduled No changes in medications Chest x-ray at 3 PM IV antibiotics at 3 PM Discharge rest 6 PM if hemodynamically stable and chest x-ray is within normal limits Discharge Disposition: HOME SELF-CARE
== END 2019-07-12 17:07 | disposition home or self-care (01) ==
LOC: CATHEP 07:03
PROVIDERS: ATTEND Internal Medicine Clinical Cardiac Electrophysiology
DX: I42.0 Dilated cardiomyopathy (principal); I44.7 Left bundle-branch block, unspecified; I11.0 Hypertensive heart disease with heart failure; I50.22 Chronic systolic (congestive) heart failure; M06.9 Rheumatoid arthritis, unspecified; F17.210 Nicotine dependence, cigarettes, uncomplicated; Z79.02 Long term (current) use of antithrombotics/antiplatelets; Z79.899 Other long term (current) drug therapy
CPT/HCPCS: 33225; 33249; 71045; C1769 ×4; C1892; C1895; C1898; C1900; C1882; J2250; J1200; J1940; J0690 ×2; J2001; J3010; J0131; J2370; J2704; Q9967

== ENCOUNTER 2019-08-25 15:55 | Inpatient (IN) | payer OTHER ==
[2019-08-25 16:48] LABS: Basophils # (A) 0.1 k/uL (0-0.2); Basophils % (A) 1 %; Eosinophils # (A) 0.4 k/uL (0-0.7); Eosinophils % (A) 4 %; HCT 49.1 % (39.0-53.0); HGB 16.2 gm/dL (13.0-17.5); Lymphocytes # (A) 2.2 k/uL (1.0-4.8); Lymphocytes % (A) 25 %; MCH 31.1 pg (25.0-35.0); MCHC 32.9 g/dL (31.0-37.0); MCV 94.5 fL (80.0-100.0); Mean Platelet Volume 7.5; Monocytes # (A) 0.5 k/uL (0-1.0); Monocytes % (A) 5 %; Neutrophils # (A) 5.8 k/uL (1.3-7.7); Neutrophils % (A) 65 %; Platelet Count 191 k/uL (150-450); RDW 14.1 % (11.5-15.5); WBC 9.1 k/uL (3.8-10.6)
--- NOTE | 2019-08-25 16:51 | XR ---
EXAMINATION TYPE: XR chest 2V DATE OF EXAM: 08/25/2019 COMPARISON: Chest x-ray July 12, 2019 HISTORY: Recent pacemaker insertion with left lower chest pain. TECHNIQUE: Frontal and lateral views of the chest are obtained. FINDINGS: There is chronic parenchymal change without suspicious new focal air space opacity, pleura l effusion, or pneumothorax seen bilaterally. The cardiac silhouette size remains enlarged with mode rate pacemaker/AICD. Lead position stable in the right atrium, right ventricle, and coronary sinus. The osseous structures are intact. IMPRESSION: Chronic changes and cardiomegaly without acute pulmonary process. No significant change from most recent x-ray.
[2019-08-25 16:57] LABS: Partial Thromboplastin Time 24.1 sec (22.0-30.0); Prothrombin Time 10.5 sec (9.0-12.0)
[2019-08-25 17:25] LABS: ALT 21 U/L (4-49); AST 31 U/L (17-59); African American GFR (CKD) >90 (>60 ml/min/1.73 sqM); Albumin 4.3 g/dL (3.5-5.0); Alkaline Phosphatase 68 U/L (38-126); Anion Gap 7 mmol/L; Blood Urea Nitrogen 17 mg/dL (9-20); Calcium 9.4 mg/dL (8.4-10.2); Carbon Dioxide 23 mmol/L (22-30); Chloride 108 mmol/L (98-107); Glucose 120 mg/dL (74-99); Magnesium 2.2 mg/dL (1.6-2.3); Non-African American GFR(CKD) >90 (>60 ml/min/1.73 sqM); Potassium 4.5 mmol/L (3.5-5.1); Sodium 138 mmol/L (137-145); Total Bilirubin 0.5 mg/dL (0.2-1.3); Total Protein 7.4 g/dL (6.3-8.2)
--- NOTE | 2019-08-25 17:38 | ED ---
Recheck HPI - General Chief Complaint: Recheck/Abnormal Lab/Rx Stated Complaint: Chest Pain Time Seen by Provider: 08/25/19 16:07 Source: patient Mode of arrival: ambulatory Limitations: no limitations - History of Present Illness Initial Comments: 49-year-old male patient presents to the emergency department today for evaluation of a twitching to the muscles on his left lateral chest wall. Patient is also reporting shortness of breath. Patient states that about a month ago he was in the hospital for 2 weeks after being found to have congestive heart failure. He did have a pacer defibrillator implanted. Patient states he started to have shortness of breath over the last couple of days. States last night he started to have this twitching in his side persisted through today and he became concerned and wanted to be evaluated. He denies any chest pain, dizziness, or weakness. Denies any increase in swelling to the arms or legs. States he is taking his Lasix as directed. Patient denies any recent rash, fever, chills, cough, abdominal pain, nausea, vomiting, diarrhea, constipation, back pain, numbness, tingling, hematuria, dysuria, urinary urgency, urinary frequency, headache, visual changes, or any other complaints. - Related Data Home Medications Medication Instructions Recorded Confirmed Carvedilol [Coreg] 3.125 mg PO BID@999,219907/08/19 08/25/19 Furosemide [Lasix] 20 mg PO BID@1000,219907/08/19 08/25/19 Aspirin EC [Ecotrin Low Dose] 81 mg PO DAILY@99908/25/19 08/25/19 Sacubitril/Valsartan [Entresto 24 1 tab PO BID@1000,219908/25/19 08/25/19 mg-26 mg Tablet] Spironolactone [Aldactone] 12.5 mg PO DAILY@99908/25/19 08/25/19 Allergies Allergy/AdvReac Type Severity Reaction Status Date / Time No Known Allergies Allergy Verified 08/25/19 17:07 Review of Systems ROS Statement: Those systems with pertinent positive or pertinent negative responses have been documented in the HPI. ROS Other: All systems not noted in ROS Statement are negative. Past Medical History Past Medical History: Heart Failure, Rheumatoid Arthritis (RA) Additional Past Medical History / Comment(s): hernia, numbness xu legs. History of Any Multi-Drug Resistant Organisms: MRSA Date of last positivie culture/infection: 2009 MDRO Source:: chest Past Surgical History: AICD, Heart Catheterization Additional Past Surgical History / Comment(s): 03/2019 cardiac cath Past Anesthesia/Blood Transfusion Reactions: No Reported Reaction Additional Past Anesthesia/Blood Transfusion Reaction / Comment(s): never had general anesthesia Past Psychological History: No Psychological Hx Reported Smoking Status: Former smoker Past Alcohol Use History: None Reported Past Drug Use History: Marijuana - Past Family History Mother Family Medical History: Cancer Additional Family Medical History / Comment(s): breast cancer Father History Unknown: Yes General Exam Limitations: no limitations General appearance: alert, in no apparent distress, other (This is a well- developed, well-nourished adult male patient in no acute distress. Vital signs upon presentation are temperature 98.2F, pulse 46, respirations 18, blood pressure 111/76, pulse ox 98% on room air.) Eye exam: Present: normal appearance, PERRL, EOMI. Absent: scleral icterus, conjunctival injection, periorbital swelling ENT exam: Present: normal exam, normal oropharynx, mucous membranes moist Respiratory exam: Present: normal lung sounds bilaterally. Absent: respiratory distress, wheezes, rales, rhonchi, stridor Cardiovascular Exam: Present: regular rate, normal rhythm, normal heart sounds. Absent: systolic murmur, diastolic murmur, rubs, gallop, clicks GI/Abdominal exam: Present: soft, normal bowel sounds. Absent: distended, tenderness, guarding, rebound, rigid Neurological exam: Present: alert, oriented X3, CN II-XII intact Psychiatric exam: Present: normal affect, normal mood Skin exam: Present: warm, dry, intact, normal color. Absent: rash Course Vital Signs 08/25/19 08/25/19 08/25/19 15:59 16:30 17:30 Temperature 98.2 F Pulse Rate 46 L 80 80 Respiratory 18 18 18 Rate Blood Pressure 111/76 129/68 138/88 O2 Sat by Pulse 98 99 99 Oximetry Medical Decision Making - Medical Decision Making 49-year-old male patient presents to the emergency department today for evaluation of dyspnea and twitching to the left sided chest wall. Physical examination reveals clear equal lung sounds. Initially heart rate was 49 which did improve. He does have a pacer defibrillator. Labs reviewed and did reveal elevated troponin at 0.050. Also had elevated BNP of 4900. Patient will be admitted to the hospital for serial troponins and further evaluation by cardiology. He is agreeable with this plan. - Lab Data Result diagrams: 08/25/19 16:25 08/25/19 16:25 Lab Results 08/25/19 08/25/19 08/25/19 Range/Units 16:25 16:25 16:25 WBC 9.1 (3.8-10.6) k/uL RBC 5.20 (4.30-5.90) m/uL Hgb 16.2 (13.0-17.5) gm/dL Hct 49.1 (39.0-53.0) % MCV 94.5 (80.0-100.0) fL MCH 31.1 (25.0-35.0) pg MCHC 32.9 (31.0-37.0) g/dL RDW 14.1 (11.5-15.5) % Plt Count 191 (150-450) k/uL Neutrophils % 65 % Lymphocytes % 25 % Monocytes % 5 % Eosinophils % 4 % Basophils % 1 % Neutrophils # 5.8 (1.3-7.7) k/uL Lymphocytes # 2.2 (1.0-4.8) k/uL Monocytes # 0.5 (0-1.0) k/uL Eosinophils # 0.4 (0-0.7) k/uL Basophils # 0.1 (0-0.2) k/uL PT 10.5 (9.0-12.0) sec INR 1.0 (<1.2) APTT 24.1 (22.0-30.0) sec Sodium 138 (137-145) mmol/L Potassium 4.5 (3.5-5.1) mmol/L Chloride 108 H (98-107) mmol/L Carbon Dioxide 23 (22-30) mmol/L Anion Gap 7 mmol/L BUN 17 (9-20) mg/dL Creatinine 0.96 (0.66-1.25) mg/dL Est GFR (CKD-EPI)AfAm >90 (>60 ml/min/1.73 sqM) Est GFR (CKD-EPI)NonAf >90 (>60 ml/min/1.73 sqM) Glucose 120 H (74-99) mg/dL Plasma Lactic Acid Sincere (0.7-2.0) mmol/L Calcium 9.4 (8.4-10.2) mg/dL Magnesium 2.2 (1.6-2.3) mg/dL Total Bilirubin 0.5 (0.2-1.3) mg/dL AST 31 (17-59) U/L ALT 21 (4-49) U/L Alkaline Phosphatase 68 (38-126) U/L Troponin I (0.000-0.034) ng/mL NT-Pro-B Natriuret Pep pg/mL Total Protein 7.4 (6.3-8.2) g/dL Albumin 4.3 (3.5-5.0) g/dL 08/25/19 08/25/19 08/25/19 Range/Units 16:25 16:25 16:25 WBC (3.8-10.6) k/uL RBC (4.30-5.90) m/uL Hgb (13.0-17.5) gm/dL Hct (39.0-53.0) % MCV (80.0-100.0) fL MCH (25.0-35.0) pg MCHC (31.0-37.0) g/dL RDW (11.5-15.5) % Plt Count (150-450) k/uL Neutrophils % % Lymphocytes % % Monocytes % % Eosinophils % % Basophils % % Neutrophils # (1.3-7.7) k/uL Lymphocytes # (1.0-4.8) k/uL Monocytes # (0-1.0) k/uL Eosinophils # (0-0.7) k/uL Basophils # (0-0.2) k/uL PT (9.0-12.0) sec INR (<1.2) APTT (22.0-30.0) sec Sodium (137-145) mmol/L Potassium (3.5-5.1) mmol/L Chloride (98-107) mmol/L Carbon Dioxide (22-30) mmol/L Anion Gap mmol/L BUN (9-20) mg/dL Creatinine (0.66-1.25) mg/dL Est GFR (CKD-EPI)AfAm (>60 ml/min/1.73 sqM) Est GFR (CKD-EPI)NonAf (>60 ml/min/1.73 sqM) Glucose (74-99) mg/dL Plasma Lactic Acid Sincere 1.6 (0.7-2.0) mmol/L Calcium (8.4-10.2) mg/dL Magnesium (1.6-2.3) mg/dL Total Bilirubin (0.2-1.3) mg/dL AST (17-59) U/L ALT (4-49) U/L Alkaline Phosphatase (38-126) U/L Troponin I 0.050 H* (0.000-0.034) ng/mL NT-Pro-B Natriuret Pep 4530 pg/mL Total Protein (6.3-8.2) g/dL Albumin (3.5-5.0) g/dL - EKG Data -: EKG Interpreted by Ar EKG Comments: EKG obtained at 1618 shows atrial sensed ventricular paced rhythm with a rate of 88, WI interval 142, QR duration 154, QTC 450, QTC 544. - Radiology Data Radiology results: report reviewed, image reviewed Two-view x-ray of the chest was obtained. Report was reviewed in its entirety. Impression by Dr. Garcia shows chronic changes and cardiomegaly without acute pulmonary process. No significant change from most recent x-ray. Disposition Clinical Impression: Elevated troponin, Dyspnea Disposition: ADMITTED IP TO THIS HOSP Condition: Serious Referrals: Yogesh Youssef MD [Primary Care Provider] - 1-2 days Decision to Admit Reason: Admit from EC Decision Date: 08/25/19 Decision Time: 18:19
[2019-08-25] MEDS ORDERED: HEPARIN SODIUM,PORCINE 5,000 UNIT/ML 1 ML VIAL IV PRN (17:46)
[2019-08-25] MEDS ORDERED: HEPARIN SODIUM,PORCINE 5,000 UNIT/ML 1 ML VIAL IV ONE (17:46)
[2019-08-25] MEDS ORDERED: MORPHINE SULFATE 2 MG/ML SYRINGE IVP PRN (17:48)
[2019-08-25] MEDS ORDERED: NITROGLYCERIN SL TABS 0.4 MG TAB SUBLINGUAL PRN (17:48)
[2019-08-25] MEDS ORDERED: ASPIRIN 81 MG PO STA (17:48)
[2019-08-25] MEDS ORDERED: HEPARIN SOD,PORK IN 0.45% NACL 25,000 UNIT in 0.45% NACL 1 250ML.BAG IV SCH (18:00)
--- NOTE | 2019-08-25 20:19 | P.HPIM ---
History of Present Illness H&P Date: 08/25/19 (shortness of breath, history of cardiomyopathy.) Chief Complaint: shortness of breath, muscle cramps of the left upper chest history and physical dictated by Patient seen and evaluated in the emergency room module #1. Chief complaint: Patient came to the emergency room after he experienced left sided of the chest cramps never happened to him before associated with shortness of breath with the underlying history of cardiomyopathy and he has recently pacemaker and defibrillator by Dr. Romeo in the left upper chest History of present illness Patient has been seen by Dr. ANDREEA Senior cardiology and recently he had left upper chest pacemaker defibrillator and he was told that he had cardiomyopathy with unknown etiology. Patient is new to me he was seen in the office for the first time. Requesting PCP. Stated that he did not have PCP in the past and Dr. ANDREEA Senior taken care of his cardiac status and he has also also abnormal problem and he claiming that he had rheumatoid arthritis and also complain diffuse in nature with no previous medical record that we can rely on. He is requesting some records from Dr. ANDREEA Senior to initiate his care and he supposedly getting a physical in the future and is RRR contacted the patient was first introduction only. Patient stated that he got worried when he had the left-sided muscle spasm with the current medication that has been given by Dr. ANDREEA Senior and he came to the emergency room. Seen by the PA for the ER and subsequently they called me to admit the patient with the underlying elevated troponin as well shortness of breath associated with his muscle spasm. Past medical history: He had stated that he had a chronic history of rheumatoid arthritis and he never received treatment. He was in [place] and he had hospitalization and was told that if he had a congestive heart failure per patient story and that they did cardiac catheterization. Review of system He denied any respiratory symptoms and no GI symptoms, no symptoms, no other cardiovascular symptoms. The rest of the 14 point review of system was negative. On the examination: Conscious alert oriented 3 he has a mask. Head was normocephalic and atraumatic pupil was equal reactive and oropharynx was negative normal the natural teas normal time and normal throat. Neck was supple no JVD no thyromegaly no lymphadenopathy trachea midline. Chest clear to auscultation and percussion. Heart: Left upper chest pacemaker, heart is regular sinus. With a history of cardiomyopathy and etiology was unknown. Abdomen soft. Bowel sounds and no tenderness of the 4 quadrants the abdominal wall has stria albicans is indicating weight and gain and the loss weight. Extremities he has normal movement and no edema and positive pulses. Neurological: Neuro exam negative, patient conscious alert oriented ambulatory no pain at the time of the examination normal muscle spasm. No lateralizing sign. Assessment: #1 experienced muscle cramps on the left side of the chest he is start that it could be a chest pain with a history of cardiomyopathy he was nervous about it and came to the emergency room with the association of shortness of breath #2 laboratory in the ER by RAHEEM with elevation of troponin and a history of cardiac disease she requested admission to laboratory monitor with the cardiology consultation. #3 history of rheumatoid arthritis however I don't have no medical record Bella any physical finding to substantiate the current illness. His vital sign has been stable. Plan patient admitted to the hospital for monitoring with the heparin protocol and to be seen by cardiology for definitive answering the question of elevated troponin. He had mild hyperglycemia and we will be checking the CBG and a glucose monitor see the patient has underlying diabetes and wasn't diagnosed in the past. He is not on any medication for blood sugar. We'll check also his troponin as well as pro BNP as well as a TSH and a CPK. Past Medical History Past Medical History: Heart Failure, Rheumatoid Arthritis (RA) Additional Past Medical History / Comment(s): hernia, numbness xu legs. History of Any Multi-Drug Resistant Organisms: MRSA Date of last positivie culture/infection: 2009 MDRO Source:: chest Past Surgical History: AICD, Heart Catheterization Additional Past Surgical History / Comment(s): 03/2019 cardiac cath Past Anesthesia/Blood Transfusion Reactions: No Reported Reaction Additional Past Anesthesia/Blood Transfusion Reaction / Comment(s): never had general anesthesia Past Psychological History: No Psychological Hx Reported Smoking Status: Former smoker Past Alcohol Use History: None Reported Past Drug Use History: Marijuana - Past Family History Mother Family Medical History: Cancer Additional Family Medical History / Comment(s): breast cancer Father History Unknown: Yes Medications and Allergies Home Medications Medication Instructions Recorded Confirmed Type Carvedilol [Coreg] 3.125 mg PO BID@1000,2200 07/08/19 08/25/19 History Furosemide [Lasix] 20 mg PO BID@1000,2200 07/08/19 08/25/19 History Aspirin EC [Ecotrin Low Dose] 81 mg PO DAILY@1000 08/25/19 08/25/19 History Sacubitril/Valsartan [Entresto 24 1 tab PO BID@1000,0 08/25/19 08/25/19 History mg-26 mg Tablet] Spironolactone [Aldactone] 12.5 mg PO DAILY@1000 08/25/19 08/25/19 History Allergies Allergy/AdvReac Type Severity Reaction Status Date / Time No Known Allergies Allergy Verified 08/25/19 17:07 Physical Exam Vitals: Vital Signs Temp Pulse Resp BP Pulse Ox 08/25/19 18:00 84 18 109/66 97 08/25/19 17:30 80 18 138/88 99 08/25/19 16:30 80 18 129/68 99 08/25/19 15:59 98.2 F 46 L 18 111/76 98 Intake and Output 08/25/19 08/25/19 08/25/19 06:59 14:59 22:59 Other: Weight 113.398 kg Results CBC & Chem 7: 08/25/19 16:25 08/25/19 16:25 Labs: Abnormal Lab Results - Last 24 Hours (Table) 08/25/19 08/25/19 Range/Units 16:25 16:25 Chloride 108 H (98-107) mmol/L Glucose 120 H (74-99) mg/dL Troponin I 0.050 H* (0.000-0.034) ng/mL
[2019-08-25] MEDS: SACUBITRIL/VALSARTAN 24 MG-26 MG TABLET PO SCH (23:12)
[2019-08-25] MEDS: FUROSEMIDE 20 MG TAB PO SCH (23:12)
[2019-08-25] MEDS: CARVEDILOL 3.125 MG TAB PO SCH (23:12)
[2019-08-26 03:55] VITALS: RESP 18
[2019-08-26 07:55] LABS: Basophils % (A) 1 %; Eosinophils # (A) 0.4 k/uL (0-0.7); Eosinophils % (A) 5 %; HCT 46.5 % (39.0-53.0); HGB 15.1 gm/dL (13.0-17.5); Lymphocytes # (A) 2.8 k/uL (1.0-4.8); Lymphocytes % (A) 36 %; MCHC 32.4 g/dL (31.0-37.0); MCV 95.6 fL (80.0-100.0); Mean Platelet Volume 7.7; Monocytes # (A) 0.4 k/uL (0-1.0); Monocytes % (A) 5 %; Neutrophils % (A) 52 %; Platelet Count 154 k/uL (150-450); RBC 4.87 m/uL (4.30-5.90); RDW 14.2 % (11.5-15.5); WBC 7.7 k/uL (3.8-10.6)
[2019-08-26 08:42] LABS: Cholesterol 154 mg/dL (<200); HDL Cholesterol 31 mg/dL (40-60); LDL Cholesterol,Calculated 94 mg/dL (0-99); Triglycerides 145 mg/dL (<150)
[2019-08-26] MEDS ORDERED: ASPIRIN 325 MG TAB PO SCH (09:00)
[2019-08-26] MEDS: SACUBITRIL/VALSARTAN 24 MG-26 MG TABLET PO SCH (09:45)
[2019-08-26] MEDS: CARVEDILOL 3.125 MG TAB PO SCH (09:46)
[2019-08-26] MEDS: FUROSEMIDE 20 MG TAB PO SCH (09:46)
[2019-08-26] MEDS ORDERED: ASPIRIN 81 MG PO SCH (10:00)
[2019-08-26] MEDS ORDERED: SPIRONOLACTONE 25 MG TAB PO SCH (10:00)
[2019-08-26 10:18] VITALS: PULSE 75; TEMP 98
--- NOTE | 2019-08-26 10:19 | CONS ---
CONSULTATION CHIEF COMPLAINT: Sharp discomfort over the left lateral chest. Papa is a 49-year-old gentleman with history of dilated cardiomyopathy with severe LV dysfunction, status post AICD who presented to hospital complaining of intermittent episodes of sharp discomfort that he describes as a cramping sensation over the left upper chest. It is mild intensity, recurrent without clear-cut relieving or exacerbating factors. It is underneath where the device is. He does not have palpitations, dizziness or syncope and his defibrillator did not go off. The patient had his initial evaluation in [place] and at that time did not have significant obstructive CAD in his coronaries on this admission. The troponins are mildly elevated at 0.05 and 0.06 which is essentially similar to the way his troponins looked at last visit. His coronavirus is negative. TSH is 0.49, potassium is 4.5, creatinine is 0.96. AST, ALT are within normal limits. BNP is at 4530. PAST MEDICAL HISTORY: Significant for dilated cardiomyopathy, chronic systolic heart failure, status post AICD. CURRENT MEDICATIONS: Include Aldactone, Entresto, Lasix, Coreg and aspirin. ALLERGIES: No known drug allergies. FAMILY HISTORY: Negative for premature coronary artery disease. SOCIAL HISTORY: Negative for current smoking, EtOH abuse, or drug abuse. REVIEW OF SYSTEMS: HEENT: Unremarkable. CARDIAC: As described above. RESPIRATORY: As described above. GI: Negative. GENITOURINARY Negative. ALLERGY/IMMUNOLOGY: Negative. SKIN: Negative. MUSCULOSKELETAL: Negative. ENDOCRINE: Negative. CONSTITUTIONAL: Negative. ONCOLOGICAL: Negative. Rest of the system review is not relevant. PHYSICAL EXAM: Patient is afebrile. Heart rate is 77, blood pressure is 104/54, respiratory rate is 18, O2 saturation is 96% on room air. There is no jugular venous distention. Chest exam reveals good air entry bilaterally. Heart exam reveals first and second heart sounds. No gallop. Abdomen is soft. Exam of the extremities did not reveal any edema. Peripheral pulses are felt. EKG shows paced rhythm with left bundle branch block. ASSESSMENT: 1. Atypical chest pain. 2. Dilated cardiomyopathy with chronic systolic heart failure. The patient is well compensated. 3. Status post AICD. 4. Elevated troponins of no clinical significance. PLAN: Stop the IV heparin, feed the patient and okay to be discharged home. MMODL / IJN: [id number] /
--- NOTE | 2019-08-26 12:00 | ECHOF ---
Referral Reason:elevated troponin ,cardiomyopathy MEASUREMENTS -------- HEIGHT: 180.3 cm WEIGHT: 114.3 kg BP: 104/54 RVIDd: 4.1 cm (< 3.3) IVSd: 0.8 cm (0.6 - 1.1) LVIDd: 8.7 cm (3.9 - 5.3) LVPWd: 1.2 cm (0.6 - 1.1) IVSs: 1.0 cm LVIDs: 7.7 cm LVPWs: 1.3 cm LAESV Index (A-L): 17.13 ml/m Ao Diam: 3.2 cm (2.0 - 3.7) AV Cusp: 2.3 cm (1.5 - 2.6) LA Diam: 3.9 cm (2.7 - 3.8) MV EXCURSION: 7.419 mm (> 18.000) MV EF SLOPE: 28 mm/s (70 - 150) EPSS: 5.8 cm MV E Leonel: 0.43 m/s MV DecT: 210 ms MV A Leonel: 0.73 m/s MV E/A Ratio: 0.59 AR PHT: 598 ms RAP: 5.00 mmHg RVSP: 21.01 mmHg TAPSE: 21.87 mm FINDINGS -------- AICD This was a technically good study. The left ventricle is severely dilated. Left ventricular wall thickness is normal. There is sever e global hypokinesis of LV . Overall left ventricular systolic function is severely impaired with, an EF < 20%. Increased LAP Grade 3 Diastolic Dysfunction. The right ventricle is normal in size. The left atrial size is normal. Normal LA size by volume 22+/-6 ml/m2. The right atrial size is normal. Interatrial and interventricular septum intact. The aortic valve is trileaflet and appears structurally normal. Trace amount of aortic regurgitatio n. The mitral valve is normal. The mitral valve leaflets are mildly thickened. There is trace mitral regurgitation. The tricuspid valve appears structurally normal. Trace tricuspid regurgitation present. Right britney tricular systolic pressure is normal at < 35 mmHg. There is no pulmonic regurgitation present. The aortic root size is normal. IVC Not well visulized. There is no pericardial effusion. CONCLUSIONS -------- 1. AICD 2. This was a technically good study. 3. The left ventricle is severely dilated. 4. Left ventricular wall thickness is normal. 5. There is severe global hypokinesis of LV . 6. Overall left ventricular systolic function is severely impaired with, an EF < 20%. 7. Increased LAP Grade 3 Diastolic Dysfunction. 8. The right ventricle is normal in size. 9. The left atrial size is normal. 10. Normal LA size by volume 22+/-6 ml/m2. 11. The right atrial size is normal. 12. Interatrial and interventricular septum intact. 13. The aortic valve is trileaflet and appears structurally normal. 14. Trace amount of aortic regurgitation. 15. The mitral valve is normal. 16. The mitral valve leaflets are mildly thickened. 17. There is trace mitral regurgitation. 18. The tricuspid valve appears structurally normal. 19. Trace tricuspid regurgitation present. 20. Right ventricular systolic pressure is normal at < 35 mmHg. 21. There is no pulmonic regurgitation present. 22. The aortic root size is normal. 23. IVC Not well visulized. 24. There is no pericardial effusion. WET PROCESS MILLER: [place] RDCS
--- NOTE | 2019-08-26 13:30 | P.DS ---
Providers Date of admission: 08/25/19 18:39 Expected date of discharge: 08/26/19 (Request clearance from cardiology) Attending physician: Yogesh Youssef Consults: 08/25/19 17:48 Consult Physician Urgent Consulting Provider: [facility] Consult Reason/Comments: Dyspnea; Elevated trop Do you want consulting provider notified?: Yes Primary care physician: Yogesh Youssef This is a discharge dictation. Date of service 08/26/2019. Final diagnoses Abnormal troponin with the underlying ejection fraction less than 20% by the echocardiogram with the associated cardio myopathy #2 left ventricular severely dilated with severe global hypokinesis. #3 left ventricular systolic function and ejection fraction severely impaired less than 20, diastolic dysfunction grade 3. Trace mitral regurgitation, severe left ventricle dilatation trace aortic regurgitation. #4 chronic of virus PCR not detected. #5 left sided pacemaker defibrillator with the complaint on admission of left sided muscle cramps with the shortness of breath. #6 troponin on discharge 0.061 on today 08/26/19, yesterday 08/25/2019 was 0.051. #7 laboratory on discharge today, white count 7.7, hemoglobin 15.1, hematocrit 46.5, platelets 154. #8 lipid profile triglyceride 145 and a cholesterol 154 and LDL 94 and HDL 31. Consultation and follow-up: Patient seen by Dr. Mondragon cardiology and released the patient for discharge however he did not put his opinion for the discharge on the computer. We'll check was Dr. Mondragon and the PA for cardiology especially with the elevation of the troponin. Patient will be following with Dr. ANDREEA Senior for next week. Echocardiogram done on this admission as mentioned above. Patient is seen today he is dressed to go home already. Patient denied any chest pain or anginal pain and no shortness of breath today no swelling or edema or cough or expectoration. Discharge exam patient is conscious alert oriented 3 ambulatory denied any symptoms. And he wants to go home and discussed with him the results and I will be following him next week as well as Dr. ANDREEA Senior jigger operator. Vital sign temperature 90.8 rate 75/m and he have infraclavicular. Pacemaker defibrillator, his respiratory rate 18 and blood pressure 114/61 with a mean blood pressure 78 and oxygen saturation is 96% on room air. HEENT: Head was normocephalic and atraumatic, pupil was equal reactive, oropharynx was negative natural teas and tongue and uvula midline. Neck supple no JVD no thyromegaly no lymphadenopathy trachea midline. Chest is clear to auscultation and percussion with the scar from left infraclavicular pacemaker placement and defibrillator no rales and no rhonchi's. Heart currently regular sinus with the underlying wide QRS with left bundle branch and the pacemaker by the EKG as well. Abdomen is soft positive bowel sounds no tenderness in 4 quadrants. Extremities no edema and positive pulses. And ambulate. Neurological: No lateralizing sign, normal cranial nerves, ambulatory moving 4 extremities. Assessment: Patient stable general condition, released by Dr. Mondragon cardiology. With the underlying cardiomyopathy unknown H Anna. Plan discharge today after clearance from the cardiology and follow-up with Dr. ANDREEA Senior. Patient also will be seen next week in the office. Continue the same medication which was ordered by Dr. ANDREEA Senior for his heart without changes. Patient Condition at Discharge: Serious Plan - Discharge Summary Discharge Rx Participant: Yes New Discharge Prescriptions: New Nitroglycerin Sl Tabs [Nitrostat] 0.4 mg SUBLINGUAL Q5M PRN tab PRN Reason: Chest Pain Continue Carvedilol [Coreg] 3.125 mg PO BID@999,0 Furosemide [Lasix] 20 mg PO BID@999,2199 Spironolactone [Aldactone] 12.5 mg PO DAILY@1000 Aspirin EC [Ecotrin Low Dose] 81 mg PO DAILY@1000 Sacubitril/Valsartan [Entresto 24 mg-26 mg Tablet] 1 tab PO BID@999,2199 Discharge Medication List Carvedilol [Coreg] 3.125 mg PO BID@999,219907/08/19 [History] Furosemide [Lasix] 20 mg PO BID@999,219907/08/19 [History] Aspirin EC [Ecotrin Low Dose] 81 mg PO DAILY@99908/25/19 [History] Sacubitril/Valsartan [Entresto 24 mg-26 mg Tablet] 1 tab PO BID@1000,219908/25/19 [History] Spironolactone [Aldactone] 12.5 mg PO DAILY@99908/25/19 [History] Nitroglycerin Sl Tabs [Nitrostat] 0.4 mg SUBLINGUAL Q5M PRN tab 08/26/19 [Rx] Follow up Appointment(s)/Referral(s): Yogesh Youssef MD [Primary Care Provider] - 1 Week Bernard Senior MD [STAFF PHYSICIAN] - 1 Week Discharge Disposition: HOME SELF-CARE
[2019-08-26 14:59] VITALS: BP 113/63
== END 2019-08-26 14:37 | disposition home or self-care (01) | DRG 313 ==
LOC: EC 15:55 → 3SCARD 18:39
PROVIDERS: ADMIT Internal Medicine; ATTEND Internal Medicine
DX: R07.89 Other chest pain (principal); I42.0 Dilated cardiomyopathy; I50.22 Chronic systolic (congestive) heart failure; M06.9 Rheumatoid arthritis, unspecified; I08.0 Rheumatic disorders of both mitral and aortic valves; Z20.828 Contact with and (suspected) exposure to other viral communicable diseases; M62.838 Other muscle spasm; R73.9 Hyperglycemia, unspecified; R79.89 Other specified abnormal findings of blood chemistry; Z79.82 Long term (current) use of aspirin; Z79.899 Other long term (current) drug therapy; Z95.810 Presence of automatic (implantable) cardiac defibrillator; Z86.14 Personal history of Methicillin resistant Staphylococcus aureus infection; Z87.891 Personal history of nicotine dependence; Z80.3 Family history of malignant neoplasm of breast
CPT/HCPCS: 36415; 71046; 80053; 80061; 83605; 83735; 83880; 84443; 84484; 85025; 85610; 85730; 87635; 93005; 93306; 96365; 96366; 96376; 99285

== ENCOUNTER → 2019-10-13 | Outpatient (CLI) | payer OTHER ==
--- NOTE | 2019-10-13 14:41 | XR ---
EXAMINATION TYPE: XR lumbosacral spine min 4V DATE OF EXAM: 10/13/2019 COMPARISON: None HISTORY: Disc disease TECHNIQUE: Five-view lumbar spine FINDINGS: There 5 lumbar-type vertebral bodies. Pedicles are intact. No spondylolytic defects are christie dent. Facet degenerative changes present L5-S1. Mild disc space narrowing is present L4-5 L5-S1. Some posterior disc space narrowing may be present L2-3. Vertebral body heights are preserved. IMPRESSION: 1. Degenerative disc changes and facet degenerative changes lower lumbar spine discussed above.
== END | disposition home or self-care (01) ==
LOC: RADXRMAIN 11:14
PROVIDERS: ATTEND Internal Medicine
DX: M51.36 Other intervertebral disc degeneration, lumbar region (principal); M47.816 Spondylosis without myelopathy or radiculopathy, lumbar region
CPT/HCPCS: 72110

== ENCOUNTER → 2019-12-27 | Outpatient (CLI) | payer OTHER ==
[2019-12-28 02:32] LABS: Anion Gap 9.4 mmol/L (4.00-12.00); Calcium 8.8 mg/dL (8.7-10.3); Carbon Dioxide 22.6 mmol/L (21.6-31.8); Potassium 3.8 mmol/L (3.5-5.5)
[2019-12-28 04:46] LABS: Hepatitis A Antibody IgM Non-Reactive (Non-Reactive); Hepatitis B Core IgM Non-Reactive (Non-Reactive); Hepatitis B Surface Antigen Non-Reactive (Non-Reactive); Hepatitis C IgG Antibody Non-Reactive (Non-Reactive)
== END | disposition home or self-care (01) ==
LOC: LABWHC1 14:18
PROVIDERS: ATTEND Internal Medicine
DX: E87.8 Other disorders of electrolyte and fluid balance, not elsewhere classified (principal); K75.9 Inflammatory liver disease, unspecified; E55.9 Vitamin D deficiency, unspecified; I42.9 Cardiomyopathy, unspecified
CPT/HCPCS: 36415; 80048; 80074; 82306; 86308; 86644; 86645

== ENCOUNTER → 2019-12-29 | Outpatient (CLI) | payer OTHER ==
--- NOTE | 2019-12-29 15:39 | CT ---
EXAMINATION TYPE: CT lumbar spine wo con DATE OF EXAM: 12/29/2019 COMPARISON: None HISTORY: Lumbar radiculopathy CT DLP: 2015.6 mGycm CONTRAST: CT scan of the lumbar is performed , patient injected with mL of . TECHNIQUE: CT of the lumbar spine is performed on a spiral scan at 3 mm thick sections. Reconstructed images are performed in the coronal and sagittal planes. FINDINGS: T12-L1: No focal disc herniation or significant disc bulge is evident. No spinal canal stenosis or neural foraminal stenosis is present. L1-L2: No focal disc herniation or significant disc bulge is evident. No spinal canal stenosis or n eural foraminal stenosis is present L2-L3: Minimal disc bulge is present with anterior thecal sac flattening. No AP spinal canal stenosis is present. Neural foramen are patent L3-L4: Minimal disc bulging is anterior thecal sac flattening. No AP spinal canal stenosis is present . Neural foramen are patent. L4-L5: Some mild right paracentral disc bulge is present L4-5 this has mild anterior thecal sac compr ession. No AP spinal canal stenosis present. Neural foramen are patent. L5-S1: No focal disc herniation or significant disc bulge is evident. No spinal canal stenosis or n eural foraminal stenosis is present Vertebral alignment appears normal. IMPRESSION: Right paracentral disc bulging L4-5 with mild anterior thecal sac compression. Correlate with right r adicular symptoms. 2. Minimal disc bulging L2-3 L3-4 with anterior thecal sac flattening
== END | disposition home or self-care (01) ==
LOC: RADCTMAIN 07:06
PROVIDERS: ATTEND Psychiatry & Neurology Neurology
DX: M51.16 Intervertebral disc disorders with radiculopathy, lumbar region (principal); G95.29 Other cord compression
CPT/HCPCS: 72131

== ENCOUNTER → 2020-04-19 | Outpatient (CLI) | payer OTHER ==
--- NOTE | 2020-04-19 15:02 | CT ---
EXAMINATION TYPE: CT lumbar spine wo con DATE OF EXAM: 04/19/2020 2:25 PM COMPARISON: 12/29/2019 HISTORY: back and leg pain for [address] DLP: 1375 mGycm Automated exposure control for dose reduction was used. Unenhanced CT of the lumbar spine was performed. Bone and soft tissue window settings are submitted as well as coronal and sagittal reconstructions. T12-L1: No focal disc herniation or significant disc bulge is evident. No spinal canal stenosis or ne ural foraminal stenosis is present. L1-L2: Mild circumferential disc bulging greater laterally to the left. No Canal stenosis. Neural for keyla remain patent. Findings retrospectively stable. L2-L3: Minimal disc bulge is present with anterior thecal sac flattening. No AP spinal canal stenosis is present. Neural foramen are patent findings stable. L3-L4: Mild disc bulging is anterior thecal sac flattening. Borderline AP spinal canal stenosis is pr esent. Neural foramen are patent. Facet arthropathy noted. Findings stable. L4-L5: Mild broad-based central disc bulge is present L4-5 this has mild anterior thecal sac compress ion. Borderline AP spinal canal stenosis present. Neural foramen are patent. L5-S1: Very mild central disc broad-based bulging. There is a left paracentral posterior osteophytic spur which encroaches upon the anterior margin the spinal canal thecal sac is stable in appearance fr om prior exam. No spinal canal stenosis or neural foraminal stenosis is present advanced facet arthro sae. Multilevel hypertrophic mild spurring anteriorly with multilevel mild degenerative disc disease. No c ompression deformities. Mild hypertrophic arthropathy of the SI joints. IMPRESSION: 1. Multilevel disc bulging with borderline AP spinal stenosis L3-4 and L4-5 unchanged from prior exam . 2. Stable left paracentral spurring L5-S1 with mild thecal sac indentation. Advanced facet arthropath y at this level with mild bilateral foraminal encroachment.
== END | disposition home or self-care (01) ==
LOC: RADCTMAIN 13:58
PROVIDERS: ATTEND Psychiatry & Neurology Neurology
DX: M48.061 Spinal stenosis, lumbar region without neurogenic claudication (principal); M51.26 Other intervertebral disc displacement, lumbar region; M47.817 Spondylosis without myelopathy or radiculopathy, lumbosacral region
CPT/HCPCS: 72131

== ENCOUNTER → 2020-10-31 | Outpatient (CLI) | payer OTHER ==
--- NOTE | 2020-10-31 15:15 | XR ---
EXAMINATION TYPE: XR chest 2V DATE OF EXAM: 10/31/2020 COMPARISON: 08/25/2019 INDICATION: Cough x2 weeks TECHNIQUE: Frontal and lateral views of the chest are obtained. FINDINGS: The heart size is normal. The pulmonary vasculature is normal. The lungs are clear. Pacemaker overlies left chest. IMPRESSION: 1. No acute pulmonary process.
[2020-10-31 19:04] LABS: Basophils # (A) 0.07 X 10*3/uL (0.00-0.10); Basophils % (A) 0.6 %; Eosinophils # (A) 0.34 X 10*3/uL (0.04-0.35); Eosinophils % (A) 3.2 %; HCT 44.5 % (39.6-50.0); HGB 15.3 g/dL (13.0-17.0); Lymphocytes # (A) 2.97 X 10*3/uL (0.90-5.00); Lymphocytes % (A) 27.6 %; MCH 31.7 pg (27.0-32.0); MCHC 34.4 g/dL (32.0-37.0); MCV 92.1 fL (80.0-97.0); Mean Platelet Volume 10.6 fL (9.5-12.2); Monocytes % (A) 10.2 %; Neutrophils # (A) 6.22 X 10*3/uL (1.80-7.70); Neutrophils % (A) 57.8 %; Platelet Count 206 X 10*3/uL (140-440); RBC 4.83 X 10*6/uL (4.40-5.60); RDW 13.6 % (11.5-14.5); WBC 10.77 X 10*3/uL (4.50-10.00)
[2020-11-01 05:57] LABS: African American GFR (CKD) 57.4 (60.0-200.0); Anion Gap 11.2 mmol/L (4.00-12.00); BUN/Creat Ratio 12.5 Ratio (12.00-20.00); Calcium 8.7 mg/dL (8.7-10.3); Carbon Dioxide 22.8 mmol/L (21.6-31.8); Non-African American GFR(CKD) 49.5 (60.0-200.0)
== END | disposition home or self-care (01) ==
LOC: LABWHC1 14:36
PROVIDERS: ATTEND Internal Medicine
DX: J12.9 Viral pneumonia, unspecified (principal); J06.9 Acute upper respiratory infection, unspecified
CPT/HCPCS: 36415; 71046; 80048; 85025